=== PATIENT | male | born 1965 | race Caucasian/White ===

== ENCOUNTER → 2018-04-16 | Outpatient (CLI) | payer OTHER, MEDICARE | END | disposition home or self-care (01) | LOC: PCVCIMAG 15:40 | DX: I08.2 Rheumatic disorders of both aortic and tricuspid valves (principal); R06.00 Dyspnea, unspecified | CPT/HCPCS: 93306 ==

== ENCOUNTER → 2018-10-10 | Outpatient (CLI) | payer OTHER ==
[~2018-10-10] MED LIST: REGADENOSON 0.4 MG/5 ML DISP.SYRIN. IV ONE
--- NOTE | 2018-10-10 16:15 | PCVCIMAG ---
APPROVED REPORT Study performed: 10/10/2018 12:55:04 EXAM: Comprehensive 2D, Doppler, and color-flow Echocardiogram Patient Location: Echo lab Status: routine BSA: 2.44 HR: 61 bpmBP: 152/92 mmHg Rhythm: NSR w/ occasional begimeny PVCs Other Information Study Quality: Adequate Risk Factors: Cardiac Risk Factors: HTN Indications Dyspnea Chest Pain 2D Dimensions IVSd: 13.39 (7-11mm)LVOT Diam: 21.87 (18-24mm) LVDd: 44.67 mm PWd: 12.15 (7-11mm)Ascending Ao: 41.12 (22-36mm) LVDs: 32.41 (25-40mm) Left Atrium: 41.53 (27-40mm) Aortic Root: 36.66 mm LV Single Plane 4CH: 53.43 % LV Single Plane 2CH: 60.46 % Biplane EF: 58.1 % Volumes Left Atrial Volume (Systole) Single Plane 4CH: 65.68 mLSingle Plane 2CH: 65.52 mL LA ESV Index: 28.00 mL/m2 Aortic Valve AoV Peak Juan Antonio.: 2.62 m/s AO Peak Gr.: 27.54 mmHgLVOT Max P.54 mmHg AO Mean Gr.: 13.05 mmHgLVOT Mean P.28 mmHg AO V2 Mean: 1.73 m/sLVOT Max V: 1.30 m/s AO V2 VTI: 61.36 cm SILVIA (VTI): 1.74 [id number] V1 VTI: 28.46 cm SILVIA Vmax: 1.86 cm2 Mitral Valve E/A Ratio: 1.0 MV Decel. Time: 304.58 ms MV E Max Juan Antonio.: 0.81 m/s MV A Juan Antonio.: 0.84 m/s MV PHT: 88.33 ms IVRT: 72.66 ms Pulmonary Valve PV Peak Juan Antonio.: 1.24 m/sPV Peak Gr.: 6.12 mmHg Pulmonary Vein P Vein S: 0.33 m/sP Vein A: 0.29 m/s P Vein D: 0.57 m/sP Vein A Dur.: 117.6 msec P Vein S/D Ratio: 0.58 Tricuspid Valve TR Peak Juan Antonio.: 2.81 m/s TR Peak Gr.: 31.66 mmHg Left Ventricle The left ventricle is normal size. There is normal LV segmental wall motion. Mild concentric left ventricular hypertrophy. Left ventricular systolic function is normal. The left ventricular ejection fraction is within the normal range. LVEF is 55-60%. The left ventricular diastolic function is normal. Right Ventricle The right ventricle is normal size. The right ventricular systolic function is normal. Atria The left atrium size is normal. The right atrium size is normal. Aortic Valve The aortic valve is moderately calcified, mildly stenotic Trace aortic regurgitation. There is mild valvular aortic stenosis. Calculated aortic valve area is 1.7 cm2 with maximum pressure gradient of 28 mmHg and mean pressure gradient of 13 mmHg. Mitral Valve The mitral valve is normal in structure. Mild mitral regurgitation. No evidence of mitral valve stenosis. Tricuspid Valve The tricuspid valve is normal in structure. Moderate tricuspid regurgitation with PAP of 40 mmHg. Pulmonic Valve The pulmonary valve is normal in structure. There is no pulmonic valvular regurgitation. Great Vessels The aortic root is normal in size. The ascending aorta is mildly dilated (4.2cm) IVC is normal in size and collapses >50% with inspiration. Pericardium There is no pericardial effusion. There is no pleural effusion. <Conclusion> Left ventricular systolic function is normal. There is normal LV segmental wall motion. LVEF is 55-60%. Diastolic function is normal. The aortic valve is moderately calcified, mildly stenotic. Cannot exclude bicuspid valve Calculated aortic valve area is 1.7 cm2 with maximum pressure gradient of 28 mmHg and mean pressure gradient of 13 mmHg. The mitral valve is normal in structure. Mild mitral regurgitation. Moderate tricuspid regurgitation with pulmonary artery presussure of 40 mmHg. The ascending aorta is mildly dilated (4.2cm) There is no pericardial effusion.
== END | disposition home or self-care (01) ==
LOC: PCVCIMAG 12:43
PROVIDERS: ATTEND Internal Medicine
DX: I08.1 Rheumatic disorders of both mitral and tricuspid valves (principal); I10 Essential (primary) hypertension; R07.9 Chest pain, unspecified; R06.09 Other forms of dyspnea
CPT/HCPCS: 93306; J2785

== ENCOUNTER → 2018-10-15 | Outpatient (CLI) | payer OTHER | END | disposition home or self-care (01) | LOC: PCVCCLINIC 10:59 | PROVIDERS: ATTEND Internal Medicine | DX: I10 Essential (primary) hypertension (principal); G47.30 Sleep apnea, unspecified; Q23.1 Congenital insufficiency of aortic valve; I27.20 Pulmonary hypertension, unspecified; R06.09 Other forms of dyspnea; F41.9 Anxiety disorder, unspecified; K21.9 Gastro-esophageal reflux disease without esophagitis; Z79.899 Other long term (current) drug therapy; Z79.82 Long term (current) use of aspirin; Z87.891 Personal history of nicotine dependence | CPT/HCPCS: G0463 ==